=== PATIENT | female | born 1970 | race Caucasian/White ===

== ENCOUNTER 2022-01-10 14:05 | Emergency (ER) | payer SELFPAY ==
[2022-01-10 14:20] VITALS: BP 126/83; PULSE 76; RESP 18; TEMP 36.7; O2SAT 98; BMI 36.6
[2022-01-10 15:00] VITALS: BP 126/83; PULSE 76; RESP 18; TEMP 36.7; O2SAT 98
--- NOTE | 2022-01-10 15:12 | HMH.EDUTC ---
[facility] [place] Disposition Clinical Impression: Tick bite Qualifiers: Encounter type: initial encounter Site of tick bite: lower leg Laterality: right Qualified Code(s): S80.861A - Insect bite (nonvenomous), right lower leg, initial encounter; W57.XXXA - Bitten or stung by nonvenomous insect and other nonvenomous arthropods, initial encounter Disposition: Home, Self-Care Condition on Discharge: Good Instructions: How to Remove a Tick, Protect Yourself from Tickborne Illnesses Additional Instructions: follow up with Dr Eli this week keep area clean and dry remove dressing tomorrow watch for s/s of infection Prescriptions: Minocycline HCl [Minocycline HCl 100mg Tab*] 100 mg PO BID 10 Days #20 tab Transmission Status: Pending to [facility] Referrals: Provider,Referral, [Primary Care Provider] - Time of Disposition: 16:06 Medical Decision Making - Joselito Inquiry Pt receiving controlled substance: No Vital Signs: 01/10/22 14:20 01/10/22 15:00 Temperature 98.0 F 98.0 F Temperature Source Oral Pulse Rate 76 Pulse Rate [Right Brachial] 76 Respiratory Rate 18 18 Blood Pressure 126/83 Blood Pressure [Right Arm] 126/83 Blood Pressure Mean [Right Arm] 97 Blood Pressure Source [Right Arm] Automatic Cuff Blood Pressure Position [Right Arm] Sitting 02 Sat by Pulse Oximetry 98 Oxygen Delivery Method Room Air - Physician Consults Physician Consulted: neisha Time: 15:12 Reason -: Other Comment/Response: opened area unable to remove tick. neisha at bedside he made incision and removed tissue, 1 suture placed, antibiotic om applied,dressing applied. [facility] [place] HPI - General Chief complaint: Urgent Treatment Center Stated complaint: possible tick burried on right leg Time Seen by Provider: 01/10/22 15:12 Mode of Arrival: Ambulatory Source of Information: Patient Limitations: No Limitations Description of Symptoms (Recalled from Triage Doc. by RN): PATIENT C/O POSSIBLE TICK BURIED IN RIGHT THIGH THAT SHE NOTICED THIS MORNING HEENT Symptoms (Recalled from RN notes): No Resp Symptoms (Recalled from RN notes): No Skin Symptoms (Recalled from RN notes): Yes MS Symptoms (Recalled from RN notes): No Functional Status (Recalled from RN notes): WNL - History of Present Illness Provider Complaint: 51 yr old female presents for tick on rt leg she noticed today - Related Data Previous Rx's Medication Instructions Recorded Minocycline HCl [Minocycline HCl 100 mg PO BID 10 Days #20 tab 01/10/22 100mg Tab*] Allergies Allergy/AdvReac Type Severity Reaction Status Date / Time No Known Allergies Allergy Verified 10/01/21 14:14 - Worker's Comp Is this a Worker's Comp case?: No [facility] History - Hepatitis A Screen Drug use history?: No High risk sexual behaviors?: No History of sexually transmitted infection?: No Currently employed?: No Childcare worker?: No Do you have indoor plumbing?: Yes Do you have electricity?: Yes Attestation statement:: This patient has been screened for Hepatitis A risk factors. I have reviewed the patient's past medical history: Yes ROS Obtained: Yes Systems reviewed as appropriate & no additional complaints - Constitutional Constitutional: Reports system reviewed and no additional complaints, except as docu, Denies fever(s) - Eyes Eyes: Reports system reviewed and no additional complaints, except as docu, Denies blurry vision - ENT Ears, Nose, Mouth, and Throat: Reports system reviewed and no additional complaints, except as docu, Denies sore throat - Cardiovascular Cardiovascular: Reports system reviewed and no additional complaints, except as docu, Denies chest pain - Respiratory Respiratory: Reports system reviewed and no additional complaints, except as docu, Denies change in phlegm color - Gastrointestinal Gastrointestingal: Reports: system reviewed and no additional complaints, except as docu. Denies: loose stools - Musculoskeletal Musculoskeletal
--- NOTE | 2022-01-10 15:37 | PC.NURSE ---
DR. GILBERT AT BEDSIDE
== END 2022-01-10 16:14 | disposition home or self-care (01) ==
PROVIDERS: Emergency Provider Nurse Practitioner Family
DX: S80.861A Insect bite (nonvenomous), right lower leg, initial encounter (principal); W57.XXXA Bitten or stung by nonvenomous insect and other nonvenomous arthropods, initial encounter
CPT/HCPCS: 10120; 99213; G0463

== ENCOUNTER 2022-03-09 10:30 | Emergency (ER) | payer SELFPAY ==
--- NOTE | 2022-03-09 10:37 | HMH.EDUTC ---
[facility] [place] Clinical Impression: Bronchitis Sinusitis Qualifiers: Sinusitis location: unspecified location Chronicity: acute Recurrence: non-recurrent Qualified Code(s): J01.90 - Acute sinusitis, unspecified Disposition: Home, Self-Care Condition on Discharge: Good Instructions: Acute Bronchitis, DI for Acute Bronchitis Additional Instructions: Drink plenty of fluids. Take tylenol or ibuprofen for pain or fever. Take the medications as directed. Follow up with your regular doctor. GO TO THE ER FOR ANY WORSENING SYMPTOMS Don't start the oral steroids until tomorrow, since you had the shot here today. Prescriptions: Benzonatate [Benzonatate 100mg cap] 100 mg PO TIDP PRN #30 cap PRN Reason: Cough Transmission Status: Pending to [facility] methylPREDNISolone [Medrol] 4 mg PO DIRECTED 6 Days #21 packet Transmission Status: Pending to [facility] guaiFENesin [Mucinex 600mg tablet] 1 - 2 tab PO BIDP PRN #30 tab PRN Reason: Congestion Transmission Status: Pending to [facility] Azithromycin [Z-Diego 250mg Tab*] 250 mg PO UD DOSE PK #6 tab Transmission Status: Pending to [facility] Referrals: Provider,Referral, MD [Primary Care Provider] - Forms: Work/School Release Time of Disposition: 11:44 Medical Decision Making - Medical Records Medical records reviewed: No: I reviewed the patient's medical records. - Joselito Inquiry Pt receiving controlled substance: No Vital Signs: 03/09/22 10:41 Temperature 98.0 F Temperature Source Oral Pulse Rate [Left Radial] 87 Respiratory Rate 19 Blood Pressure [Right Arm] 132/78 Blood Pressure Mean [Right Arm] 96 02 Sat by Pulse Oximetry 99 - Lab Data Lab results reviewed: Yes: I reviewed the patient's lab results. Orders (Tests/Meds): ED MEDICATIONS Discontinued Medications Generic Name Dose Route Start Last Admin Trade Name Freq PRN Reason Stop Dose Admin Ceftriaxone Sodium 1 gm 03/09/22 11:28 03/09/22 11:41 Ceftriaxone 1gm Vial IM 03/09/22 11:29 1 gm ONCE ONE Administration Lidocaine HCl 0 ml 03/09/22 11:28 03/09/22 11:40 Lidocaine 1% 5ml Pf Vial IM 03/09/22 11:29 2 ml ONCE ONE Administration Methylprednisolone Sodium Succinate 125 mg 03/09/22 11:28 03/09/22 11:40 Methylprednisolone Sod Succ 125mg Vial IM 03/09/22 11:29 125 mg ONCE ONE Administration [facility] [place] - General Stated complaint: cough, congestion Time Seen by Provider: 03/09/22 10:37 - History of Present Illness Provider Complaint: She states that she has had chest congestion, sinus congestion, and malaise for the past 3 days. - Related Data Previous Rx's Medication Instructions Recorded Minocycline HCl [Minocycline HCl 100 mg PO BID 10 Days #20 tab 01/10/22 100mg Tab*] Azithromycin [Z-Diego 250mg Tab*] 250 mg PO UD DOSE PK #6 tab 03/09/22 Benzonatate [Benzonatate 100mg 100 mg PO TIDP PRN #30 cap 03/09/22 cap] guaiFENesin [Mucinex 600mg tablet] 1 - 2 tab PO BIDP PRN #30 tab 03/09/22 methylPREDNISolone [Medrol] 4 mg PO DIRECTED 6 Days #21 03/09/22 packet Allergies Allergy/AdvReac Type Severity Reaction Status Date / Time No Known Allergies Allergy Verified 03/09/22 10:44 [facility] History - Hepatitis A Screen Attestation statement:: This patient has been screened for Hepatitis A risk factors. I have reviewed the patient's past medical history: Yes Other Surgeries: Yes: Other Comment: excision for tick bite - Social History Smoking Status: Current every day smoker Alcohol Intake: never Occupational Status: employed Family Hx:: No significant family history ROS Obtained: Yes All systems reviewed & no additional complaints - Constitutional Constitutional: Reports as per HPI, Reports chills, Denies fever(s), Reports poor appetite, Reports malaise - Eyes Eyes: Denies eye discharge - ENT Ears, Nose, Mouth, and Throat: Reports as per HPI
[2022-03-09 10:41] VITALS: BP 132/78; PULSE 87; RESP 19; TEMP 36.7; O2SAT 99; BMI 36.6
[2022-03-09 12:11] VITALS: BP 132/78; PULSE 87; RESP 19; TEMP 36.7
== END 2022-03-09 12:12 | disposition home or self-care (01) ==
PROVIDERS: Emergency Provider Nurse Practitioner Family
DX: J40 Bronchitis, not specified as acute or chronic (principal); J01.90 Acute sinusitis, unspecified
CPT/HCPCS: 96372; 99212; G0463; J0696

== ENCOUNTER 2022-05-31 14:10 | Emergency (ER) | payer OTHER, SELFPAY ==
[2022-05-31 14:39] VITALS: BP 118/79; PULSE 91; RESP 18; TEMP 37.4; O2SAT 98; BMI 36.0
[2022-05-31 14:49] LABS: UTC Strep Screen (Rapid) Negative (Negative)
--- NOTE | 2022-05-31 14:51 | HMH.EDUTC ---
[facility] [place] Clinical Impression: Acute bronchitis Qualifiers: Bronchitis organism: unspecified organism Qualified Code(s): J20.9 - Acute bronchitis, unspecified Pharyngitis Qualifiers: Pharyngitis/tonsillitis etiology: unspecified etiology Qualified Code(s): J02.9 - Acute pharyngitis, unspecified Disposition: Home, Self-Care Condition on Discharge: Good Instructions: DI for Acute Bronchitis, DI for COVID-19 (Suspected or Confirmed ), Preventing the Spread of Coronavirus Discharge Instructions Additional Instructions: Drink plenty of fluids. Take tylenol or ibuprofen for pain or fever. Take the medications as directed. Follow up with your regular doctor. GO TO THE ER FOR ANY WORSENING SYMPTOMS Quarantine until you know the results of your covid-19 test. Notify your school or workplace of your results and follow their instructions regarding return to work/school. Prescriptions: Benzonatate [Benzonatate 100mg cap] 100 mg PO TIDP PRN #30 cap PRN Reason: Cough Transmission Status: Received by [facility] methylPREDNISolone [Medrol] 4 mg PO DIRECTED 6 Days #21 packet Transmission Status: Received by [facility] Azithromycin [Z-Diego 250mg Tab*] 250 mg PO UD DOSE PK #6 tab Transmission Status: Received by [facility] Referrals: Provider,Referral, [Primary Care Provider] - Time of Disposition: 15:27 Medical Decision Making - Medical Records Medical records reviewed: No: I reviewed the patient's medical records. - Joselito Inquiry Pt receiving controlled substance: No Vital Signs: 05/31/22 14:39 05/31/22 15:38 Temperature 99.3 F 99.3 F Temperature Source Oral Pulse Rate 91 H Pulse Rate [Right Radial] 91 H Respiratory Rate 18 18 Blood Pressure 118/79 Blood Pressure [Right Arm] 118/79 Blood Pressure Mean [Right Arm] 92 Blood Pressure Source [Right Arm] Automatic Cuff Blood Pressure Position [Right Arm] Sitting 02 Sat by Pulse Oximetry 98 Oxygen Delivery Method Room Air - Lab Data Lab results reviewed: Yes: I reviewed the patient's lab results. Lab Results 05/31/22 14:36: Strep Scn Rapid Clinic Negative Orders (Tests/Meds): ORDERS Category Date Time Status Strep Screen Confirmation Stat Micro 05/31/22 14:36 Received [facility] [place] HPI - General Stated complaint: Fever, chills, sore throat Time Seen by Provider: 05/31/22 14:51 Mode of Arrival: Ambulatory Source of Information: Patient Limitations: No Limitations Description of Symptoms (Recalled from Triage Doc. by RN): pt reports fever, chills, cough and sore throat that began yesterday. HEENT Symptoms (Recalled from RN notes): Yes (reports sore throat) Resp Symptoms (Recalled from RN notes): Yes (reports cough) Skin Symptoms (Recalled from RN notes): No MS Symptoms (Recalled from RN notes): No Functional Status (Recalled from RN notes): n/a - History of Present Illness Provider Complaint: She c/o sore throat, chills, body aches and a nonproductive cough for the past 2 days. - Related Data Previous Rx's Medication Instructions Recorded Minocycline HCl [Minocycline HCl 100 mg PO BID 10 Days #20 tab 01/10/22 100mg Tab*] Azithromycin [Z-Diego 250mg Tab*] 250 mg PO UD DOSE PK #6 tab 03/09/22 Benzonatate [Benzonatate 100mg 100 mg PO TIDP PRN #30 cap 03/09/22 cap] guaiFENesin [Mucinex 600mg tablet] 1 - 2 tab PO BIDP PRN #30 tab 03/09/22 methylPREDNISolone [Medrol] 4 mg PO DIRECTED 6 Days #21 03/09/22 packet Azithromycin [Z-Diego 250mg Tab*] 250 mg PO UD DOSE PK #6 tab 05/31/22 Benzonatate [Benzonatate 100mg 100 mg PO TIDP PRN #30 cap 05/31/22 cap] methylPREDNISolone [Medrol] 4 mg PO DIRECTED 6 Days #21 05/31/22 packet Allergies Allergy/AdvReac Type Severity Reaction Status Date / Time No Known Allergies Allergy Verified 03/09/22 10:44 - Worker's Comp Is this a Worker's Comp case?: No [facility] History - Hepatitis A Screen Attestatio
[2022-05-31 15:38] VITALS: BP 118/79; PULSE 91; RESP 18; TEMP 37.4
== END 2022-05-31 15:39 | disposition home or self-care (01) ==
PROVIDERS: Emergency Provider Nurse Practitioner Family
DX: U07.1 COVID-19 (principal); J20.9 Acute bronchitis, unspecified; J02.9 Acute pharyngitis, unspecified; F17.200 Nicotine dependence, unspecified, uncomplicated; Z79.52 Long term (current) use of systemic steroids; Z79.899 Other long term (current) drug therapy
CPT/HCPCS: 87880; 99213; C9803; G0463; U0003; U0005

== ENCOUNTER → 2022-07-21 15:00 | Outpatient (CLI) | payer OTHER, SELFPAY ==
[2022-07-21 18:36] LABS: Basophils # 0.2 K/mm3 (0-0.2); Basophils % 1.6 % (0.1-2.0); Eosinophils # 0.2 K/mm3 (0.0-0.4); Eosinophils % 1.3 % (0.1-12.0); Hematocrit 41.9 % (37.0-47.0); Hemoglobin 13.3 g/dL (12.2-16.2); Lymphocytes # 4.1 K/mm3 (0.7-4.5); Lymphocytes % 32.2 % (10-50); Mean Corpuscular HGB Conc 31.8 g/dL (31.8-35.4); Mean Corpuscular Hemoglobin 23.9 pg (27.0-31.2); Mean Corpuscular Volume 75.1 fl (81-99); Mean Platelet Volume 8.2 fl (7.4-10.4); Monocytes # 1.1 K/mm3 (0.1-1.0); Monocytes % 8.6 % (1.7-9.3); Neutrophils # 7.2 K/mm3 (1.8-7.8); Neutrophils % 56.3 % (37.0-80.0); Platelet Count 363 K/mm3 (142-424); Red Blood Count 5.57 M/mm3 (4.20-5.40); White Blood Count 12.8 K/mm3 (4.8-10.8)
[2022-07-21 18:54] LABS: Alanine Aminotransferase 17 U/L (12-78); Albumin Level 3.9 g/dl (3.5-5.0); Albumin/Globulin Ratio 1.3 (1.1-1.8); Alkaline Phosphatase 98 U/L (38-126); Aspartate Amino Transferase 25 U/L (14-36); Blood Urea Nitrogen 18 mg/dl (7-17); Calcium 9.1 mg/dl (8.4-10.2); Carbon Dioxide 30 mmol/L (22.0-30.0); Chloride 103 mmol/L (98-107); Chol/HDL Ratio 5.1 (1-3.5); Cholesterol 220 mg/dl (140-200); Estimated Glomerular Filt Rate 76 ml/min (>60); GFR (African American) 92 ML/MIN (>60); Glucose 121 mg/dl (74-100); HDL Cholesterol 43 mg/dl (40-60); Sodium 140 mmol/L (136-145); Total Protein,Serum 6.9 g/dl (6.3-8.2); Triglycerides 195 mg/dl (30-150); VLDL Cholesterol 39 mg/dL (0-40)
[2022-07-21 18:58] LABS: Bilirubin,Total < 0.1 mg/dl (0.2-1.3)
[2022-07-21 19:08] LABS: Direct LDL Cholesterol 141.32 mg/dL (100-129)
[2022-07-21 19:25] LABS: Thyroid Stimulating Hormone 7.37 uIU/mL (0.465-4.68)
[2022-07-21 19:47] LABS: Hemoglobin A1C 5.5 % (4.0-6.0)
== END ==
LOC: LAB.DROPOF 07-22 06:23
PROVIDERS: PCP Family Medicine; Visit Provider Student in an Organized Health Care Education/Training Program
DX: Z76.89 Persons encountering health services in other specified circumstances (principal); E03.9 Hypothyroidism, unspecified
CPT/HCPCS: 80053; 80061; 83036; 84443; 85025

== ENCOUNTER → 2022-07-29 13:08 | Outpatient (CLI) | payer OTHER, SELFPAY ==
--- NOTE | 2022-07-29 13:09 | MM_ITS ---
PROCEDURE INFORMATION: Exam: Bilateral Screening 3D Mammography Exam date and time: 07/29/2022 1:11 PM Age: 52 years old Clinical indication: Screening. History of bilateral benign needle biopsies. TECHNIQUE: Imaging protocol: Bilateral Screening tomosynthesis and 2D mammography including computer-aided detection (CAD) when performed. COMPARISON: DIAGNOSTIC DIGITAL BILAT W/CAD 05/03/2019 10:51 AM FINDINGS: MAMMOGRAPHY: Breast composition: There are scattered areas of fibroglandular density. Mass: No suspicious mass. Architectural distortion: Stable mild architectural distortion in the inner right breast, corresponding to scar marker placed on 05/03/2019 mammogram. Calcifications: No suspicious calcifications. Asymmetric density: None. Skin thickening: None. Axillary adenopathy: None. IMPRESSION: No mammographic evidence of malignancy. Annual screening is recommended unless otherwise clinically indicated. ASSESSMENT: BI-RADS Category 2: Benign
== END ==
PROVIDERS: PCP Physician Assistant; Visit Provider Physician Assistant
DX: Z12.31 Encounter for screening mammogram for malignant neoplasm of breast (principal)
CPT/HCPCS: 77063; 77067

== ENCOUNTER → 2022-10-25 09:10 | Outpatient (CLI) | payer SELFPAY | PROVIDERS: PCP Family Medicine; Visit Provider Family Medicine | DX: E03.9 Hypothyroidism, unspecified (principal) | CPT/HCPCS: 84443 ==

== ENCOUNTER → 2023-05-31 10:44 | Outpatient (CLI) | payer OTHER, SELFPAY | LOC: LAB.DROPOF 10:45 | PROVIDERS: PCP Nurse Practitioner Family; Visit Provider Nurse Practitioner Family | DX: R30.0 Dysuria (principal); B96.29 Other Escherichia coli [E. coli] as the cause of diseases classified elsewhere | CPT/HCPCS: 87086; 87088; 87186 ==

== ENCOUNTER 2024-02-16 18:00 | Outpatient (CLI) | payer BC, SELFPAY | END 2024-02-16 23:59 | disposition home or self-care (01) | LOC: LAB.DROPOF 02-20 08:19 | PROVIDERS: PCP Nurse Practitioner; Visit Provider Nurse Practitioner | DX: M79.675 Pain in left toe(s) (principal); B35.1 Tinea unguium | CPT/HCPCS: 87102; 87206; 87220 ==

== ENCOUNTER 2024-04-05 16:47 | Outpatient (CLI) | payer BC, SELFPAY | END 2024-04-05 23:59 | disposition home or self-care (01) | LOC: LAB.DROPOF 16:47 | PROVIDERS: PCP Nurse Practitioner Family; Visit Provider Nurse Practitioner Family | DX: R39.9 Unspecified symptoms and signs involving the genitourinary system (principal); N39.0 Urinary tract infection, site not specified; B96.20 Unspecified Escherichia coli [E. coli] as the cause of diseases classified elsewhere | CPT/HCPCS: 87086; 87088; 87186 ==

== ENCOUNTER 2024-06-28 13:22 | Outpatient (CLI) | payer BC, SELFPAY | END 2024-06-28 23:59 | disposition home or self-care (01) | LOC: LAB.DROPOF 06-29 13:23 | PROVIDERS: PCP Family Medicine; Visit Provider Family Medicine | DX: R39.9 Unspecified symptoms and signs involving the genitourinary system (principal) | CPT/HCPCS: 87086; 87088; 87186 ==

== ENCOUNTER 2024-10-12 14:00 | Outpatient (CLI) | payer BC, SELFPAY ==
[2024-10-12 16:49] LABS: Alanine Aminotransferase 20 U/L (12-78); Albumin Level 3.9 g/dl (3.5-5.0); Albumin/Globulin Ratio 1.3 (1.1-1.8); Alkaline Phosphatase 89 U/L (38-126); Anion Gap 8.9 mEq/L (5-15); Aspartate Amino Transferase 30 U/L (14-36); Bilirubin,Total 0.5 mg/dl (0.2-1.3); Blood Urea Nitrogen 18 mg/dl (7-17); Calcium 9.3 mg/dl (8.4-10.2); Carbon Dioxide 28 mmol/L (22.0-30.0); Chloride 106 mmol/L (98-107); Estimated Glomerular Filt Rate 75 ml/min (>60); GFR (African American) 91 ML/MIN (>60); Globulin 2.9 g/dL (1.3-3.2); Glucose 73 mg/dl (74-100); Potassium 4.9 mmoL/L (3.5-5.1); Sodium 138 mmol/L (136-145); Total Protein,Serum 6.8 g/dl (6.3-8.2)
[2024-10-12 16:52] LABS: Hematocrit 42.2 % (37.0-47.0); Hemoglobin 13.3 g/dL (12.2-16.2); Mean Corpuscular Hemoglobin 23.6 pg (27.0-31.2); Mean Corpuscular Volume 74.8 fl (81-99); Red Blood Count 5.64 M/mm3 (4.20-5.40); White Blood Count 12.3 K/mm3 (4.8-10.8)
[2024-10-12 16:53] LABS: Basophils % 0.6 % (0.1-2.0); Eosinophils % 1.5 % (0.1-12.0); Lymphocytes % 28.8 % (10-50); Mean Corpuscular HGB Conc 31.5 g/dL (31.8-35.4); Mean Platelet Volume 10.2 fl (7.4-10.4); Monocytes % 6.7 % (1.7-9.3); Platelet Count 370 K/mm3 (142-424)
[2024-10-12 16:54] LABS: Basophils # 0.1 K/mm3 (0-0.2); Eosinophils # 0.2 K/mm3 (0.0-0.4); Lymphocytes # 3.6 K/mm3 (0.7-4.5); Monocytes # 0.8 K/mm3 (0.1-1.0); Neutrophils # 7.6 K/mm3 (1.8-7.8)
[2024-10-12 18:35] LABS: HIV Combo NEGATIVE (Negative)
[2024-10-13 07:09] LABS: HCV Ab Non Reactive (Non Reactive)
== END 2024-10-12 23:59 | disposition home or self-care (01) ==
LOC: LAB.DROPOF 10-15 12:18
PROVIDERS: PCP Family Medicine; Visit Provider Family Medicine
DX: Z11.4 Encounter for screening for human immunodeficiency virus [HIV] (principal); Z11.59 Encounter for screening for other viral diseases; E03.9 Hypothyroidism, unspecified
CPT/HCPCS: 80050; 80053; 84443; 85025; 86803; 87389

== ENCOUNTER 2025-01-10 14:50 | Outpatient (CLI) | payer MEDICAID, SELFPAY ==
[2025-01-10 17:30] LABS: Thyroid Stimulating Hormone 0.53 uIU/mL (0.465-4.68)
== END 2025-01-10 23:59 | disposition home or self-care (01) ==
LOC: LAB.DROPOF 01-11 12:08
PROVIDERS: PCP Family Medicine; Visit Provider Family Medicine
DX: E03.9 Hypothyroidism, unspecified (principal)
CPT/HCPCS: 84443

== ENCOUNTER 2025-01-16 13:18 | Outpatient (CLI) | payer MEDICAID, SELFPAY ==
--- NOTE | 2025-01-16 13:22 | XR_ITS ---
FINAL REPORT CLINICAL HISTORY: hip pain..no trauma COMPARISON: None FINDINGS: AP and frog leg views of the left hip were obtained. There is no acute fracture or dislocation. Joint space is preserved. Soft tissues are unremarkable. IMPRESSION: No acute osseous abnormality of the left hip. Reviewed, Interpreted and Dictated by Merline Burton MD Transcribed by Tanya Prieto Authenticated and [facility]
--- NOTE | 2025-01-16 13:22 | XR_ITS ---
FINAL REPORT CLINICAL HISTORY: Hip Pain..no trauma COMPARISON: None FINDINGS: An AP view of the pelvis and a frog leg view of the right hip were obtained. There is no acute fracture or dislocation. Joint space is preserved. Remaining osseous pelvis is without acute abnormality. Soft tissues are unremarkable. IMPRESSION: No acute osseous abnormality of the right hip. Reviewed, Interpreted and Dictated by Merline Burton MD Transcribed by Tanya Prieto Authenticated and [facility]
== END 2025-01-16 23:59 | disposition home or self-care (01) ==
LOC: RAD 13:20
PROVIDERS: PCP Family Medicine; Visit Provider Physician Assistant
DX: M25.551 Pain in right hip (principal); M25.552 Pain in left hip
CPT/HCPCS: 73502

== ENCOUNTER 2025-02-20 12:13 | Outpatient (CLI) | payer MEDICAID, SELFPAY ==
--- NOTE | 2025-02-20 12:15 | XR_ITS ---
FINAL REPORT CLINICAL HISTORY: Right shoulder pain COMPARISON: None FINDINGS: RIGHT SHOULDER Three views demonstrate no acute fracture or dislocation. The visualized joint spaces are normally aligned. The soft tissues are unremarkable. IMPRESSION: No acute bony abnormality. Reviewed, Interpreted and Dictated by Abraham Domínguez MD Transcribed by Mabel Milner Authenticated and [facility]
== END 2025-02-20 23:59 | disposition home or self-care (01) ==
LOC: RAD 12:14
PROVIDERS: PCP Family Medicine; Visit Provider Physician Assistant
DX: M25.511 Pain in right shoulder (principal)
CPT/HCPCS: 73030

== ENCOUNTER 2025-02-27 11:37 | Outpatient (CLI) | payer MEDICAID, SELFPAY | END 2025-02-27 23:59 | disposition home or self-care (01) | LOC: LAB.DROPOF 02-28 08:52 | PROVIDERS: PCP Family Medicine; Visit Provider Family Medicine | DX: N39.0 Urinary tract infection, site not specified (principal) | CPT/HCPCS: 87086; 87088 ==

== ENCOUNTER 2025-03-04 16:00 | Outpatient (CLI) | payer MEDICAID, SELFPAY ==
--- NOTE | 2025-03-04 16:15 | MR_ITS ---
PROCEDURE INFORMATION: Exam: MR Right Upper Extremity Joint Without Contrast; Shoulder Exam date and time: 03/04/2025 4:51 PM Age: 54 years old Clinical indication: Right shoulder pain x 3 weeks. Lrom. No injury; Additional info: RT shoulder pain TECHNIQUE: Imaging protocol: Magnetic resonance imaging of the right upper extremity without contrast. Exam focused on the shoulder. COMPARISON: CR XR SHOULDER RT MIN 2V 02/20/2025 12:16 PM FINDINGS: Bones/joints: There is mild osteoarthritic changes in the acromioclavicular joint with small joint effusion. The acromioclavicular joint is intact. The acromion is type 2. No suspicious marrow signal. No fracture visualized. Nonspecific cell subchondral cyst in the greater tuberosity. Glenoid labrum: No displaced labral tear. There is no displaced tear of the labrum. There is minimal degenerative fraying superiorly. Bursae: Subacromial bursitis. Supraspinatus tendon: There is supraspinatus tendinosis with high-grade partial-thickness articular sided tearing measuring 1.2 cm AP. No atrophy. Infraspinatus tendon: Infraspinatus tendinosis with low-grade articular sided tearing. No atrophy. Subscapularis tendon: There is tendinosis of subscapularis with intermediate grade articular sided tearing. No atrophy. Teres minor tendon: Unremarkable. No evidence of tear. Tendon of biceps brachii: Split tearing suspected of the intra-articular portion. Glenohumeral ligaments: Unremarkable. Soft tissues: Unremarkable. IMPRESSION: 1. There is diffuse rotator cuff tendinopathy with high-grade articular sided tearing of supraspinatus and intermediate grade articular sided tearing of subscapularis, as described. 2. Mild acromioclavicular joint osteoarthrosis. 3. Degenerative superior labral fraying without displaced tearing. The intra-articular biceps has suspected split tearing.
== END 2025-03-04 23:59 | disposition home or self-care (01) ==
LOC: RAD 16:00
PROVIDERS: PCP Family Medicine; Visit Provider Physician Assistant
DX: M19.011 Primary osteoarthritis, right shoulder (principal); M75.101 Unspecified rotator cuff tear or rupture of right shoulder, not specified as traumatic; M67.811 Other specified disorders of synovium, right shoulder
CPT/HCPCS: 73221

== ENCOUNTER 2025-04-23 21:49 | Outpatient (CLI) | payer MEDICAID, SELFPAY ==
--- OUTSIDE RECORDS SUMMARY | 2025-04-23 21:52 | XMS_ITS | Clinical Summary ---
Author Organization [employer] ([place], [place], [place], [place]) Address [address] [place] [address] Care Team Providers Care Video Game Creator Name Role Phone Ousmane Gifford MD Primary Care Provider [phone] Allergies No known active allergies Medications No known medications Active Problems Problem Noted Date Diagnosed Date Chest pain, unspecified type 04/10/2024 Social History Tobacco Use Types Packs/Day Years Used Date Smoking Tobacco: Every Day Cigarettes Smokeless Tobacco: Never Tobacco Cessation:Ready to Q uit: Not Asked; Counseling Given: Not Answered Alcohol Use Standard Drinks/Week Comments Never 0 (1 standard drink = 0.6 oz pur e alcohol) Food Insecurity Answer Date Recorded Food run out past 12 months Not on file 03/24 Food did not last past 12 months Not on file 04/10/2024 Employment Answer Date Recorded Help finding and keeping a job Not on file 0 04/10/2024 Family and Community Support Answer Tejas e Recorded Help with Day to Day Activities Not on file 04/10/2024 Feeling Lonely or Isolated Not on file 04/10 Educational Attainment Answer Date Avtar rded Speak language other than Belizean at home Not on file 04/10/2024 Want help with school or training Not on file 04/10/2024 Substance Use Answer Date Recorded Used prescription meds for non-medical reasons N ot on file 04/10/2024 Used illegal drugs past 12 months Not on file 04/10/2024 Comments Unknown Sex and Gender Information Value Date Recorded Sex Assigned at Not on file Legal Sex Female 1:47 PM CDT Gender Identity Not on file Sexual Orientation Not on file Last Filed Vital Signs Vital Sign Reading Time Taken Comments Blood Pressure 120/78 04/10/2024 3:53 PM EDT Pulse 71 04/10/2024 3:53 PM EDT Temperature 36.7 C (98.1 F) 04/10/2024 12:53 PM EDT Respiratory Rate 16 04/10/2024 3:53 PM EDT Oxygen Saturation 95% 04/10/2024 3:53 PM EDT Inhaled Oxygen Concentration - - Weight 93.9 kg (207 lb) 04/10/2024 12:53 PM EDT Height 157.5 cm (5' 2 ) 04/10/2024 12:53 PM EDT Body Mass Index 37.86 04/10/2024 12:53 PM EDT Plan of Treatment Health Maintenance Due Date Last Done Comments CT Colonography 1972 Colonoscopy 1972 Colorectal Cancer Screening 1972 FOBT/FIT 1972 Fit-DNA (Cologuard) 1972 Sigmoidoscopy 1972 Depression Screening (12+) 1984 Tobacco Cessation Counseling and Screening (12+) 04/20 HIV Screening 1987 Hepatitis C Screening 1990 Pneumococcal 50+ years (1 of 2 - PCV) 1991 Pap Smear 1993 Breast Cancer Screening 2012 Lipid Panel 2017 Shingles Vaccine (Zoster) (1 of 2) 2022 COVID-19 VACCINE (1 - season) 2024 Influenza Vaccine (Season Ended) 2025 DTAP/TDAP/TD VACCINES (2 - Td or Tdap) 07/22/2027 Insurance [facility] JIMMY JOHNSON Care Teams Video Game Creator Relationship Specialty Start Date End Date Ousmane Gifford MD [address] [place] [address] [place] [id number] PCP - General Family Medicine 04/10/24
--- OUTSIDE RECORDS SUMMARY | 2025-04-23 21:52 | XMS_ITS | Data Portability ---
Author Organization [facility] [place] Address [address] [place] [address] Care Team Providers Care Pickle Pumper Name Role Phone EMMETT TORRES Primary Care Provider [phone] Assessment No assessment recorded. Plan of Treatment Reminders Order Date Submit Date Provider Last Modified By Organization Details Last Modified Time Details Appointments None record ed. Lab None record ed. Referral None record ed. Procedures None record ed. Surgeries None record ed. Imaging None record ed. Medication Orders None record ed. Patient TargetsNo targets recorded. Patient InstructionsNo instructions recorded. Reason for Referral None Reported. Procedures Surgical History Date Name Laterality Status Provider Name and Address Organization Details Recorded Time section completed [facility] & [place] 06/20/2024 11:07:16 laparoscopic cholecystectomy completed [facility] 06/20/2024 11:07:28 hysterectomy completed [facility] 06/20/2024 11:07:44 Imaging Results None recorded. Procedure Notes None recorded. Medical Equipment None Reported. Allergies No known drug allergies Medications Name Sig Start Date Stop Date Status Note LastModified by Organization Details LastModified Time meloxicam 15 mg tablet TAKE 1 TABLET BY MOUTH ONCE DAILY active Not Available Not Available No t Available levothyroxin e 25 mcg tablet TAKE 1 TABLET BY MOUTH ONCE DAILY FOR 1 WEEK, THEN 2 DAILY FOR 1 WEEK, THEN 3 DAILY FOR 1 WEEK, THEN 4 TABLETS DAILY active Not Available Not Available No t Available buspirone 10 mg tablet TAKE 1 TABLET BY MOUTH TWICE DAILY 06/20 completed Not Available Not Available Not Available fluoxetine 20 mg capsule TAKE 1 CAPSULE BY MOUTH ONCE DAILY active Not Available Not Available No t Available Vitals Date Recorded Body height Body mass index (BMI) Body weight Heart rate Oxygen saturation Oxygen saturation in Arterial blood by Pulse oximetry Body temperature Systolic blood pressure Diastolic blood pressure Provider Name and Address Organization Details Last Updated DateTime 4 157.48 cm 38.4 kg/m2 03437.0 4 g 104 /min 98 % 98 % 98.1 [degF] 130 mm[Hg] 86 mm[Hg] [facility] [place] 4 11:05:30 Social History None recorded. Functional Status None recorded. Mental Status None recorded. Family History Nothing Reported. Medical History No medical history recorded. Gynecological HistoryNo gynecological history recorded. Obstetrics History GPAL:G 0 P 0 0 0 0 Past Encounters Encounter ID Performer Location Encounter Start Date Encounter Closed Date Diagnosis/Indication Diagnosis SNOMED-CT Code Diagnosis ICD10 Code Diagnosis Note [id number] DO Ángel SHEIKH General Surgery [place] - [address] [place] [address] [place] [address] 06/20/2024 10:43:33 06/20/2024 14:34:21 Mass of soft tissue [id number] R22.9 - patient with a soft tissue mass of the upper back that is bothersome -discussed the risks ( including bleeding, infection, recurrence ), benefits, alternativ es to excisional biopsy. Patient agrees to proceed with operative interventi on.- patient without significan t medical history and able to complete greater than 4 Mets- [facility] Concerns Section Related Observation LastModified by Organization Detai ls LastModified Time None Recorded Concern Status LastModified by Organization Details LastModified Time None Recorded Advance Directives Directive None Recorded Payers Insurance Date Sequence Insurance Name Policy Number Policy Sosa Covered Member ID Sosa Member ID Guarantor Name 03/27/2025 1 LORI-JUSTIN: JIMMY S[place] OF [place] - MEDICAID (HMO) [id number] Odalis F Early [id number] Odalis Early Notes Date Note Type Note Provider Name and Address Organization Details Recorded Time 06/20/2024 text/html 54-year-old fema diony presents for evaluation for soft tissue mass of upper back. Patient states he has had this mass for some time thyroid has been asymptomatic. She states over the last couple weeks she is noticed it has enlarged and spontaneously ruptured. She states since then it has been pruritic and bothersome. DK HUERTA, [address], [address], [place], [address], [place] - [facility] - [place] & [place] 06/20/2024 21:31:44 OBGyn Episode No OBEpisode recorded.
--- OUTSIDE RECORDS SUMMARY | 2025-04-23 21:52 | XMS_ITS | Referral Summary ---
Author Organization [employer] ([place], [place], [place], [place]) Address [address] [place] [address] Care Team Providers Care Warehouse Material Handler Name Role Phone Ousmane Gifford MD Primary Care Provider [phone]- [phone] Allergies No known active allergies Medications No [...] Date Avtar rded Speak language other than [place] at home Not on file 04/10/2024 Want [...] 04/10/2024 12:53 PM EDT Plan of Treatment Not on file Insurance [facility] Care Teams Warehouse Material Handler Relationship Specialty Start Date End Date Ousmane Gifford MD [address] [place] [id number] PCP - General Family Medicine 04/10/24
== END 2025-04-23 23:59 | disposition home or self-care (01) ==
LOC: LAB 21:51
PROVIDERS: PCP Nurse Practitioner Family; Visit Provider Nurse Practitioner Family
DX: N39.0 Urinary tract infection, site not specified (principal)
CPT/HCPCS: 87086; 87088; 87186